=== PATIENT | male | born 1960 | race Caucasian/White ===

== ENCOUNTER → 2019-09-19 | Outpatient (CLI) | payer BC | LOC: LAB.O 12:06 | PROVIDERS: ATTEND Nurse Practitioner | DX: R20.2 Paresthesia of skin (principal); M10.9 Gout, unspecified ==

== ENCOUNTER → 2020-09-17 | Outpatient (CLI) | payer BC ==
--- NOTE | 2020-09-17 11:32 | RAD ---
EXAM DESCRIPTION: Pelvis CLINICAL HISTORY: 60 years Male, HIP PAIN COMPARISON: CT abdomen and pelvis 06/15/2014. TECHNIQUE: Single view radiograph of the pelvis. IMPRESSION: Partially obscured sacrum and coccyx by overlying bowel. No acute displaced fracture. No dislocation. Moderate arthrosis of the hips. Intact pubic joint. Electronically signed by: Manan Dickinson MD 09/17/2020 11:30 AM [facility]
--- NOTE | 2020-09-17 11:40 | RAD ---
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 Small to modest marginal osteophytes noted. Less severe changes involving the lateral compartment and patellofemoral articulation noted with very little joint effusion evident on the lateral view. Mild osteopenia. No acute fracture. IMPRESSION: 1. Advanced end-stage [id number] degenerative joint disease medial joint compartment left knee. Electronically signed by: Jake Oconnor MD 09/17/2020 11:39 AM [facility]
--- NOTE | 2020-09-17 11:42 | RAD ---
EXAM DESCRIPTION: Knee,Right Complete CLINICAL HISTORY: 60 years, Male, KNEE PAIN COMPARISON: Opposite left knee TECHNIQUE: Four views of the right knee FINDINGS: Four views right knee demonstrate very mild degenerative disease and very mild osteopenia. Joint space medially and laterally well preserved with no significant joint effusion. Small amount of marginal osteophyte formation at the lateral patellar facet noted. No fracture or dislocation. IMPRESSION: 1. Minimal degenerative changes right knee. Electronically signed by: Jake Oconnor MD 09/17/2020 11:40 AM [facility]
== END ==
LOC: RAD 07:49
PROVIDERS: ATTEND Orthopaedic Surgery
DX: M17.0 Bilateral primary osteoarthritis of knee (principal); M16.0 Bilateral primary osteoarthritis of hip

== ENCOUNTER → 2020-09-17 | Outpatient (CLI) | payer BC | LOC: LAB.NP 09:12 | PROVIDERS: ATTEND Orthopaedic Surgery | DX: R60.0 Localized edema (principal) ==